=== PATIENT | female | born 1945 | race Caucasian/White ===

== ENCOUNTER → 2025-08-30 | Outpatient (CLI) | payer MEDICARE | LOC: M SLEEP 08:39 | PROVIDERS: ATTEND Psychiatry & Neurology Neurology | DX: R55 Syncope and collapse (principal) ==

== ENCOUNTER → 2025-09-20 | Outpatient (CLI) | payer MEDICARE | LOC: M PLARAD 10:03 | PROVIDERS: ATTEND Psychiatry & Neurology Neurology | DX: R26.9 Unspecified abnormalities of gait and mobility (principal) ==